=== PATIENT | male | born 1960 | race Caucasian/White ===

== ENCOUNTER 2016-07-18 12:28 | Inpatient (IN) | payer OTHER ==
[2016-07-18 13:06] VITALS: BMI 29.2
--- NOTE | 2016-07-18 15:01 | HP ---
Admission ROS [facility] Chief Complaint: I AM HERE FOR REHAB FROM ALCOHOL Allergies/Adverse Reactions: Allergies Allergy/AdvReac Type Severity Reaction Status Date / Time clindamycin Allergy Verified 07/18/16 15:06 Penicillins Allergy Verified 07/18/16 15:05 vancomycin Allergy Verified 07/18/16 15:05 History of Present Illness: THIS 56 YEARS OLD MALE WITH ALCOHOL DEPENDENCE FOR REHAB DETOX AT [facility] FROM 07/12/16 TO 07/18/16 HTN HYPERLIPIDEMIA GOUT LONGEST SOBRIETY 1 YEAR Exam Limitations: No Limitations - Ebola screening Have you traveled outside of the country in the last 21 days: No Have you been sick,other than usual withdrawal symptoms: No - Review of Systems Constitutional: No Symptoms Reported EENT: reports: No Symptoms Reported Respiratory: reports: No Symptoms reported Cardiac: reports: No Symptoms Reported GI: reports: No Symptoms Reported : reports: No Symptoms Reported Musculoskeletal: reports: No Symptoms Reported Integumentary: reports: No Symptoms Reported Neuro: reports: No Symptoms reported Endocrine: reports: No Symptoms Reported Hematology: reports: No Symptoms Reported, Other (HISTORY OF HAIRY CELL LEUKEMIA S/P CHEMOTHERAY ON REMISION) Psychiatric: reports: No Sypmtoms Reported Other Systems: Reviewed and Negative Patient History - Patient Medical History Hx Anemia: Yes (NON COMPLIANCE) Hx Asthma: No Hx Chronic Obstructive Pulmonary Disease (COPD): No Hx Cancer: No Hx Cardiac Disorders: No Hx Congestive Heart Failure: No Hx Hypertension: Yes (ON MED) Hx Hypercholesterolemia: Yes (ON MED) Hx Pacemaker: No HX Cerebrovascular Accident: No Hx Seizures: No Hx Dementia: No Hx Diabetes: No Hx Gastrointestinal Disorders: No Hx Liver Disease: No Hx Genitourinary Disorders: No Hx Sexually Transmitted Disorders: No Hx Renal Disease (ESRD): No Hx Thyroid Disease: No Hx Human Immunodeficiency Virus (HIV): No (LAST 05/30 NEGATIVE) Hx Hepatitis C: No Hx Depression: No Hx Suicide Attempt: No Hx Bipolar Disorder: No Hx Schizophrenia: No Other Medical History: NO SUICIDAL,NO HOMICIDAL,HISOTRY OF HAIRY CELL LEUKEMIA ON REMISSION S/P CH - Patient Surgical History Past Surgical History: No - PPD History Previous Implant?: Yes Documented Results: Negative w/o proof PPD to be Administered?: Yes - Smoking Cessation Smoking history: Never smoked - Substance & Tx. History Hx Alcohol Use: Yes Hx Substance Use: No Substance Use Type: Alcohol Hx Substance Use Treatment: Yes ([facility] 07/12/16 TO 07/18/16) - Substances Abused Alcohol Route: Oral Frequency: Daily Amount used: 1PINT OF RUM/2 OF 12 OZS OF BEER Age of first use: 19 Date of Last Use: 07/12/16 Family Disease History - Family Disease History Family History: Denies Admission Physical Exam [facility] - Vital Signs Vital Signs: Vital Signs - 24 hr 07/18/16 13:03 Temperature 99.1 F Pulse Rate 71 Respiratory 18 Rate Blood Pressure 152/88 - Physical General Appearance: Yes: Within Normal Limits HEENTM: Yes: Within Normal Limits Respiratory: Yes: Lungs Clear Neck: Yes: Within Normal Limits Breast: Yes: Within Normal Limits Cardiology: Yes: Within Normal Limits, Regular Rhythm, Regular Rate, S1, S2 Abdominal: Yes: Within Normal Limits, Normal Bowel Sounds, Non Tender, Flat, Soft Genitourinary: Yes: Within Normal Limits Back: Yes: Within Normal Limits Musculoskeletal: Yes: Within Normal Limits Extremities: Yes: Within Normal Limits Neurological: Yes: Within Normal Limits, 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, Fully Oriented, Alert Integumentary: Yes: Within Normal Limits Lymphatic: Yes: Within Normal Limits - Diagnostic (1) Alcohol dependence Current Visit: Yes Status: Acute (2) Hypertension Current Visit: Yes Status: Acute (3) Hyperlipidemia Current Visit: Yes Status: Acute (4) Gout Current Visit: Yes Status: Acute (5) Hairy cell leukemia Current Visit: Yes Status: Acute (6) History of chemotherapy Current Visit: Yes Status: Acute Cleared for Admission [facility] - Detox or Rehab Claeared for Rehab Admission: Yes [facility] Breath Alcohol Content Breath Alcohol Content: 0 Urine Drug Screen - Results Drug Screen Negative: No Urine Drug Screen Results: OPI-Opiates, BZO-Benzodiazepines
[2016-07-18] MEDS ORDERED: MAG HYDROX/AL HYDROX/SIMETH 30 ML UNIT-DOSE CUP PO PRN (15:29)
[2016-07-18] MEDS ORDERED: P-EPHED 60MG/TRIPROLIDI 2.5MG TABLET PO PRN (15:29)
[2016-07-18] MEDS ORDERED: diphenhydrAMINE HCL 50 MG CAPSULE PO PRN (15:29)
[2016-07-18] MEDS ORDERED: IBUPROFEN 400 MG TABLET (FP) PO PRN (15:29)
[2016-07-18] MEDS ORDERED: MENTHOL/PHENOL 1 EACH UD MM PRN (15:29)
[2016-07-18] MEDS ORDERED: MAGNESIUM HYDROX 2400MG/30ML ORAL SUSPENSION 30 ML CUP PO PRN (15:29)
[2016-07-18] MEDS ORDERED: guaiFENesin/D-METHORPHAN HB 10 ML UNIT-DOSE CUPS PO PRN (15:29)
[2016-07-18] MEDS ORDERED: LOPERAMIDE HCL 2 MG CAPSULE PO PRN (15:29)
[2016-07-18] MEDS ORDERED: MAGNESIUM CITRATE 300 ML BOTTLE PO PRN (15:29)
[2016-07-18] MEDS ORDERED: ACETAMINOPHEN 325 MG TABLET (FP) PO PRN (15:29)
[2016-07-18 17:36] LABS: MCH 31.9 pg (25.7-33.7); MCHC 33.3 g/dl (32.0-35.9); MEAN CELL VOLUME 95.8 fl (80-96); MEAN PLT VOLUME 8.3 fl (7.5-11.1); PLATELET COUNT 234 K/MM3 (134-434); RDW 13.2 % (11.9-15.9); WHITE BLOOD COUNT 4.7 K/mm3 (4.0-10.0)
[2016-07-18 17:47] LABS: ALBUMIN 4.2 g/dl (3.4-5.0); ANION GAP 8 (8-16); CO2 26 mmol/L (21-32); CREATININE 0.8 mg/dL (0.7-1.3); GLUCOSE,RANDOM 114 mg/dL (74-106); SGOT/AST 29 U/L (15-37)
[2016-07-18 18:01] LABS: ALK PHOS 92 U/L (45-117); BILIRUBIN,TOTAL 0.4 mg/dL (0.2-1.0); SGPT/ALT 59 U/L (12-78); TOT PROT 7.2 g/dl (6.4-8.2)
[2016-07-18] MEDS: THIAMINE HCL 100 MG TABLET (FP) PO SCH (21:28)
[2016-07-19] MEDS ORDERED: PATIENT'S OWN MEDICATION (NON-FORMULARY) (Vitamin B Complex [Vitamin B Complex] 1 EACH) PO SCH (10:00)
--- NOTE | 2016-07-19 10:09 | HP ---
Psychiatrist Admission - Data Date of interview: 07/19/16 Admission source: [facility]( inpt detox 07/12/16-07/18/16) Identifying data: This is the first [facility] admission for this 56 years old male, father of 3 children, unemployed on SSI, domiciled Medical History: Significant for history of Anemia, HTN, Hyperlipidemia, Gout, Hairy Cell Leukemia in remission Psychiatric History: Denies history of previous psychiatric treatment Physical/Sexual Abuse/Trauma History: Denies history of physical, sexual abuse as DV relationhip Additional Comment: Denies criminal history Vital Signs: Vital Signs - 24 hr 07/18/16 07/19/16 07/19/16 13:03 00:30 03:30 Temperature 99.1 F Pulse Rate 71 Respiratory 18 16 16 Rate Blood Pressure 152/88 07/19/16 06:00 Temperature 98.5 F Pulse Rate 64 Respiratory 18 Rate Blood Pressure 161/92 Allergies/Adverse Reactions: Allergies Allergy/AdvReac Type Severity Reaction Status Date / Time clindamycin Allergy Verified 07/18/16 15:06 Penicillins Allergy Verified 07/18/16 15:05 vancomycin Allergy Verified 07/18/16 15:05 Date of last physical exam: 07/18/16 Concur with the findings of this exam: Yes - Substance Abuse/Tx History Hx Alcohol Use: Yes Substance Use Type: Alcohol (Started drinking alcohol at age 19, consumes one pint of rum and 2x 12 oz of beer daily. Last drink on 07/12/16) Hx Substance Use Treatment: Yes (3 previous inpt detox & 3 inpt rehab( [address])) - Admission Criteria Previous failed treatment: No Poor recovery environment: Yes Comorbidities: Yes Lacks judgement: Yes Mental Status Exam - Mental Status Exam Alert and Oriented to: Time, Place, Person Cognitive Function: Fair Patient Appearance: Well Groomed Mood: Anxious Affect: Appropriate Patient Behavior: Cooperative Speech Pattern: Clear Voice Loudness: Normal Thought Process: Intact Thought Disorder: Not Present Hallucinations: Denies Suicidal Ideation: Denies Homicidal Ideation: Denies Insight/Judgement: Fair Sleep: Poorly Appetite: Fair Muscle strength/Tone: Normal Gait/Station: Normal Psychiatric Findings - Problem List ([place] 1, 2,3) (1) Alcohol dependence Current Visit: Yes Status: Acute (2) Gout Current Visit: Yes Status: Acute (3) Hairy cell leukemia Current Visit: Yes Status: Acute (4) History of chemotherapy Current Visit: Yes Status: Acute (5) Hyperlipidemia Current Visit: Yes Status: Acute (6) Hypertension Current Visit: Yes Status: Acute (7) Alcohol-induced sleep disorder Current Visit: Yes Status: Acute - Initial Treatment Plan Initial Treatment Plan: 1) Start Trazadone 100 mg po HS. 2) Monitor progress
[2016-07-19] MEDS: PRENATAL VITAMINS W/ FOLIC ACID TABLET (FP) PO SCH (10:14)
[2016-07-19] MEDS: AMLODIPINE BESYLATE 5 MG PO SCH (11:30)
[2016-07-19] MEDS: PATIENT'S OWN MEDICATION (NON-FORMULARY) (Folic Acid - [Folic Acid -] 1 MG) PO SCH (11:30)
[2016-07-19] MEDS: ALLOPURINOL PO SCH (11:30)
[2016-07-19] MEDS: ATENOLOL PO SCH (11:30)
[2016-07-19] MEDS ORDERED: ACETAMINOPHEN 325 MG TABLET (FP) ONE (12:20)
[2016-07-19] MEDS: PATIENT'S OWN MEDICATION (NON-FORMULARY) (Simvastatin [Simvastatin] 10 MG) PO SCH ×2 (16:40→21:20)
[2016-07-19] MEDS: traZODone HCL 100 MG TABLET (FP) PO SCH (21:21)
[2016-07-19] MEDS: THIAMINE HCL 100 MG TABLET (FP) PO SCH (21:21)
[2016-07-20] MEDS: ALLOPURINOL PO SCH (10:22)
[2016-07-20] MEDS: AMLODIPINE BESYLATE 5 MG PO SCH (10:22)
[2016-07-20] MEDS: PATIENT'S OWN MEDICATION (NON-FORMULARY) (Folic Acid - [Folic Acid -] 1 MG) PO SCH (10:22)
[2016-07-20] MEDS: ATENOLOL PO SCH (10:22)
[2016-07-20] MEDS: PRENATAL VITAMINS W/ FOLIC ACID TABLET (FP) PO SCH (10:23)
[2016-07-20 11:08] LABS: URINE APPEARANCE SLCLOUDY; URINE BILIRUBIN NEGATIVE (NEGATIVE); URINE BLOOD NEGATIVE (NEGATIVE); URINE COLOR LTYELLOW; URINE GLUCOSE (UA) NEGATIVE (NEGATIVE); URINE KETONE NEGATIVE (NEGATIVE); URINE NITRITE NEGATIVE (NEGATIVE); URINE PROTEIN NEGATIVE (NEGATIVE); URINE UROBILINOGEN NEGATIVE E.U./dl (0.2-1.0)
--- NOTE | 2016-07-20 11:22 | EKG ---
Test Reason : Blood Pressure : / mmHG Vent. Rate : 085 BPM Atrial Rate : 085 BPM P-R Int : 180 ms QRS Dur : 102 ms QT Int : 370 ms P-R-T Axes : 053 028 031 degrees QTc Int : 440 ms NORMAL SINUS RHYTHM CANNOT RULE OUT ANTERIOR INFARCT , AGE UNDETERMINED NONSPECIFIC ST ABNORMALITY NO PREVIOUS ECGS AVAILABLE Confirmed by ALISTAIR LAYNE MD ([id number]) on 07/20/2016 11:22:06 AM Referred By: Confirmed By:ALISTAIR LAYNE MD
[2016-07-20 11:31] LABS: URINE LEUK ESTERASE TRACE (NEGATIVE)
[2016-07-20 11:50] LABS: URINE BACTERIA MANY /hpf (NONE SEEN); URINE MUCUS RARE; URINE WBC 2 /hpf (3-5); YEAST RARE
[2016-07-20 12:20] LABS: URINE RBC 1 /hpf (0-3)
[2016-07-20] MEDS: traZODone HCL 100 MG TABLET (FP) PO SCH (21:40)
[2016-07-20] MEDS: PATIENT'S OWN MEDICATION (NON-FORMULARY) (Simvastatin [Simvastatin] 10 MG) PO SCH (21:40)
[2016-07-20] MEDS: THIAMINE HCL 100 MG TABLET (FP) PO SCH (21:40)
[2016-07-21] MEDS: ATENOLOL PO SCH (10:28)
[2016-07-21] MEDS: ALLOPURINOL PO SCH (10:28)
[2016-07-21] MEDS: PATIENT'S OWN MEDICATION (NON-FORMULARY) (Folic Acid - [Folic Acid -] 1 MG) PO SCH (10:28)
[2016-07-21] MEDS: PRENATAL VITAMINS W/ FOLIC ACID TABLET (FP) PO SCH (10:28)
[2016-07-21] MEDS: AMLODIPINE BESYLATE 5 MG PO SCH (10:28)
[2016-07-21] MEDS: traZODone HCL 100 MG TABLET (FP) PO SCH (21:17)
[2016-07-21] MEDS: THIAMINE HCL 100 MG TABLET (FP) PO SCH (21:18)
[2016-07-21] MEDS: PATIENT'S OWN MEDICATION (NON-FORMULARY) (Simvastatin [Simvastatin] 10 MG) PO SCH (21:18)
[2016-07-22] MEDS: ALLOPURINOL PO SCH (10:15)
[2016-07-22] MEDS: PATIENT'S OWN MEDICATION (NON-FORMULARY) (Folic Acid - [Folic Acid -] 1 MG) PO SCH (10:15)
[2016-07-22] MEDS: PRENATAL VITAMINS W/ FOLIC ACID TABLET (FP) PO SCH (10:15)
[2016-07-22] MEDS: ATENOLOL PO SCH (10:15)
[2016-07-22] MEDS: AMLODIPINE BESYLATE 5 MG PO SCH (10:15)
[2016-07-22] MEDS: THIAMINE HCL 100 MG TABLET (FP) PO SCH (21:45)
[2016-07-22] MEDS: traZODone HCL 100 MG TABLET (FP) PO SCH (21:45)
[2016-07-22] MEDS: PATIENT'S OWN MEDICATION (NON-FORMULARY) (Simvastatin [Simvastatin] 10 MG) PO SCH (21:45)
[2016-07-23] MEDS: PATIENT'S OWN MEDICATION (NON-FORMULARY) (Folic Acid - [Folic Acid -] 1 MG) PO SCH (10:08)
[2016-07-23] MEDS: ALLOPURINOL PO SCH (10:08)
[2016-07-23] MEDS: AMLODIPINE BESYLATE 5 MG PO SCH (10:08)
[2016-07-23] MEDS: ATENOLOL PO SCH (10:08)
[2016-07-23] MEDS: PRENATAL VITAMINS W/ FOLIC ACID TABLET (FP) PO SCH (10:08)
[2016-07-23] MEDS: THIAMINE HCL 100 MG TABLET (FP) PO SCH (21:43)
[2016-07-23] MEDS: PATIENT'S OWN MEDICATION (NON-FORMULARY) (Simvastatin [Simvastatin] 10 MG) PO SCH (21:43)
[2016-07-23] MEDS: traZODone HCL 100 MG TABLET (FP) PO SCH (22:54)
[2016-07-24] MEDS: PRENATAL VITAMINS W/ FOLIC ACID TABLET (FP) PO SCH (10:03)
[2016-07-24] MEDS: AMLODIPINE BESYLATE 5 MG PO SCH (10:03)
[2016-07-24] MEDS: PATIENT'S OWN MEDICATION (NON-FORMULARY) (Folic Acid - [Folic Acid -] 1 MG) PO SCH (10:04)
[2016-07-24] MEDS: ATENOLOL PO SCH (10:04)
[2016-07-24] MEDS: ALLOPURINOL PO SCH (10:04)
[2016-07-24] MEDS: THIAMINE HCL 100 MG TABLET (FP) PO SCH (21:41)
[2016-07-24] MEDS: PATIENT'S OWN MEDICATION (NON-FORMULARY) (Simvastatin [Simvastatin] 10 MG) PO SCH (21:41)
[2016-07-24] MEDS: traZODone HCL 100 MG TABLET (FP) PO SCH (21:41)
[2016-07-25] MEDS: PATIENT'S OWN MEDICATION (NON-FORMULARY) (Folic Acid - [Folic Acid -] 1 MG) PO SCH (10:27)
[2016-07-25] MEDS: AMLODIPINE BESYLATE 5 MG PO SCH (10:27)
[2016-07-25] MEDS: ALLOPURINOL PO SCH (10:27)
[2016-07-25] MEDS: ATENOLOL PO SCH (10:27)
[2016-07-25] MEDS: PRENATAL VITAMINS W/ FOLIC ACID TABLET (FP) PO SCH (10:28)
[2016-07-25] MEDS: PATIENT'S OWN MEDICATION (NON-FORMULARY) (Simvastatin [Simvastatin] 10 MG) PO SCH (21:36)
[2016-07-25] MEDS: THIAMINE HCL 100 MG TABLET (FP) PO SCH (21:36)
[2016-07-25] MEDS: traZODone HCL 100 MG TABLET (FP) PO SCH (21:36)
[2016-07-26] MEDS: PRENATAL VITAMINS W/ FOLIC ACID TABLET (FP) PO SCH (10:15)
[2016-07-26] MEDS: ATENOLOL PO SCH (10:15)
[2016-07-26] MEDS: PATIENT'S OWN MEDICATION (NON-FORMULARY) (Folic Acid - [Folic Acid -] 1 MG) PO SCH (10:15)
[2016-07-26] MEDS: AMLODIPINE BESYLATE 5 MG PO SCH (10:15)
[2016-07-26] MEDS: ALLOPURINOL PO SCH (10:15)
[2016-07-26] MEDS: PATIENT'S OWN MEDICATION (NON-FORMULARY) (Simvastatin [Simvastatin] 10 MG) PO SCH (21:34)
[2016-07-26] MEDS: traZODone HCL 100 MG TABLET (FP) PO SCH (21:34)
[2016-07-26] MEDS: THIAMINE HCL 100 MG TABLET (FP) PO SCH (21:34)
[2016-07-27] MEDS: ALLOPURINOL PO SCH (10:27)
[2016-07-27] MEDS: ATENOLOL PO SCH (10:27)
[2016-07-27] MEDS: AMLODIPINE BESYLATE 5 MG PO SCH (10:27)
[2016-07-27] MEDS: PRENATAL VITAMINS W/ FOLIC ACID TABLET (FP) PO SCH (10:27)
[2016-07-27] MEDS: PATIENT'S OWN MEDICATION (NON-FORMULARY) (Folic Acid - [Folic Acid -] 1 MG) PO SCH (10:28)
[2016-07-27] MEDS: traZODone HCL 100 MG TABLET (FP) PO SCH (21:41)
[2016-07-27] MEDS: THIAMINE HCL 100 MG TABLET (FP) PO SCH (21:41)
[2016-07-27] MEDS: PATIENT'S OWN MEDICATION (NON-FORMULARY) (Simvastatin [Simvastatin] 10 MG) PO SCH (21:42)
[2016-07-28] MEDS: PATIENT'S OWN MEDICATION (NON-FORMULARY) (Folic Acid - [Folic Acid -] 1 MG) PO SCH (10:55)
[2016-07-28] MEDS: ALLOPURINOL PO SCH (10:55)
[2016-07-28] MEDS: ATENOLOL PO SCH (10:55)
[2016-07-28] MEDS: AMLODIPINE BESYLATE 5 MG PO SCH (10:55)
[2016-07-28] MEDS: PRENATAL VITAMINS W/ FOLIC ACID TABLET (FP) PO SCH (11:17)
[2016-07-28] MEDS: traZODone HCL 100 MG TABLET (FP) PO SCH (21:34)
[2016-07-28] MEDS: THIAMINE HCL 100 MG TABLET (FP) PO SCH (21:34)
[2016-07-28] MEDS: PATIENT'S OWN MEDICATION (NON-FORMULARY) (Simvastatin [Simvastatin] 10 MG) PO SCH (21:34)
[2016-07-29] MEDS: ATENOLOL PO SCH (10:26)
[2016-07-29] MEDS: PATIENT'S OWN MEDICATION (NON-FORMULARY) (Folic Acid - [Folic Acid -] 1 MG) PO SCH (10:27)
[2016-07-29] MEDS: PRENATAL VITAMINS W/ FOLIC ACID TABLET (FP) PO SCH (10:28)
[2016-07-29] MEDS: AMLODIPINE BESYLATE 5 MG PO SCH (10:28)
[2016-07-29] MEDS: ALLOPURINOL PO SCH (10:28)
[2016-07-29] MEDS: PATIENT'S OWN MEDICATION (NON-FORMULARY) (Simvastatin [Simvastatin] 10 MG) PO SCH (21:34)
[2016-07-29] MEDS: THIAMINE HCL 100 MG TABLET (FP) PO SCH (21:34)
[2016-07-29] MEDS: traZODone HCL 100 MG TABLET (FP) PO SCH (21:35)
[2016-07-30] MEDS: ALLOPURINOL PO SCH (10:23)
[2016-07-30] MEDS: ATENOLOL PO SCH (10:23)
[2016-07-30] MEDS: PRENATAL VITAMINS W/ FOLIC ACID TABLET (FP) PO SCH (10:24)
[2016-07-30] MEDS: PATIENT'S OWN MEDICATION (NON-FORMULARY) (Folic Acid - [Folic Acid -] 1 MG) PO SCH (10:24)
[2016-07-30] MEDS: AMLODIPINE BESYLATE 5 MG PO SCH (10:24)
[2016-07-30] MEDS: THIAMINE HCL 100 MG TABLET (FP) PO SCH (21:32)
[2016-07-30] MEDS: traZODone HCL 100 MG TABLET (FP) PO SCH (21:32)
[2016-07-30] MEDS: PATIENT'S OWN MEDICATION (NON-FORMULARY) (Simvastatin [Simvastatin] 10 MG) PO SCH (21:32)
[2016-07-31] MEDS: ALLOPURINOL PO SCH (10:32)
[2016-07-31] MEDS: AMLODIPINE BESYLATE 5 MG PO SCH (10:32)
[2016-07-31] MEDS: PATIENT'S OWN MEDICATION (NON-FORMULARY) (Folic Acid - [Folic Acid -] 1 MG) PO SCH (10:32)
[2016-07-31] MEDS: ATENOLOL PO SCH (10:32)
[2016-07-31] MEDS: PRENATAL VITAMINS W/ FOLIC ACID TABLET (FP) PO SCH (10:33)
[2016-07-31] MEDS: traZODone HCL 100 MG TABLET (FP) PO SCH (21:25)
[2016-07-31] MEDS: PATIENT'S OWN MEDICATION (NON-FORMULARY) (Simvastatin [Simvastatin] 10 MG) PO SCH (21:25)
[2016-07-31] MEDS: THIAMINE HCL 100 MG TABLET (FP) PO SCH (21:25)
[2016-08-01] MEDS: ALLOPURINOL PO SCH (10:28)
[2016-08-01] MEDS: PATIENT'S OWN MEDICATION (NON-FORMULARY) (Folic Acid - [Folic Acid -] 1 MG) PO SCH (10:28)
[2016-08-01] MEDS: ATENOLOL PO SCH (10:28)
[2016-08-01] MEDS: AMLODIPINE BESYLATE 5 MG PO SCH (10:28)
[2016-08-01] MEDS: PRENATAL VITAMINS W/ FOLIC ACID TABLET (FP) PO SCH (10:28)
[2016-08-01] MEDS: THIAMINE HCL 100 MG TABLET (FP) PO SCH (21:30)
[2016-08-01] MEDS: traZODone HCL 100 MG TABLET (FP) PO SCH (21:30)
[2016-08-01] MEDS: PATIENT'S OWN MEDICATION (NON-FORMULARY) (Simvastatin [Simvastatin] 10 MG) PO SCH (21:30)
[2016-08-02] MEDS: PRENATAL VITAMINS W/ FOLIC ACID TABLET (FP) PO SCH (10:17)
[2016-08-02] MEDS: ATENOLOL PO SCH (10:17)
[2016-08-02] MEDS: PATIENT'S OWN MEDICATION (NON-FORMULARY) (Folic Acid - [Folic Acid -] 1 MG) PO SCH (10:17)
[2016-08-02] MEDS: ALLOPURINOL PO SCH (10:17)
[2016-08-02] MEDS: AMLODIPINE BESYLATE 5 MG PO SCH (10:17)
[2016-08-02] MEDS: PATIENT'S OWN MEDICATION (NON-FORMULARY) (Simvastatin [Simvastatin] 10 MG) PO SCH (21:37)
[2016-08-02] MEDS: traZODone HCL 100 MG TABLET (FP) PO SCH (21:38)
[2016-08-02] MEDS: THIAMINE HCL 100 MG TABLET (FP) PO SCH (21:38)
[2016-08-03] MEDS: ATENOLOL PO SCH (10:16)
[2016-08-03] MEDS: AMLODIPINE BESYLATE 5 MG PO SCH (10:16)
[2016-08-03] MEDS: ALLOPURINOL PO SCH (10:17)
[2016-08-03] MEDS: PRENATAL VITAMINS W/ FOLIC ACID TABLET (FP) PO SCH (10:17)
[2016-08-03] MEDS: PATIENT'S OWN MEDICATION (NON-FORMULARY) (Folic Acid - [Folic Acid -] 1 MG) PO SCH (10:17)
[2016-08-03] MEDS: traZODone HCL 100 MG TABLET (FP) PO SCH (21:52)
[2016-08-03] MEDS: PATIENT'S OWN MEDICATION (NON-FORMULARY) (Simvastatin [Simvastatin] 10 MG) PO SCH (21:52)
[2016-08-03] MEDS: THIAMINE HCL 100 MG TABLET (FP) PO SCH (21:52)
[2016-08-04] MEDS: PATIENT'S OWN MEDICATION (NON-FORMULARY) (Folic Acid - [Folic Acid -] 1 MG) PO SCH (10:20)
[2016-08-04] MEDS: ATENOLOL PO SCH (10:20)
[2016-08-04] MEDS: AMLODIPINE BESYLATE 5 MG PO SCH (10:20)
[2016-08-04] MEDS: ALLOPURINOL PO SCH (10:20)
[2016-08-04] MEDS: PRENATAL VITAMINS W/ FOLIC ACID TABLET (FP) PO SCH (10:20)
[2016-08-04] MEDS: traZODone HCL 100 MG TABLET (FP) PO SCH (21:42)
[2016-08-04] MEDS: THIAMINE HCL 100 MG TABLET (FP) PO SCH (21:42)
[2016-08-04] MEDS: PATIENT'S OWN MEDICATION (NON-FORMULARY) (Simvastatin [Simvastatin] 10 MG) PO SCH (21:43)
[2016-08-05] MEDS: ATENOLOL PO SCH (10:13)
[2016-08-05] MEDS: ALLOPURINOL PO SCH (10:13)
[2016-08-05] MEDS: AMLODIPINE BESYLATE 5 MG PO SCH (10:13)
[2016-08-05] MEDS: PATIENT'S OWN MEDICATION (NON-FORMULARY) (Folic Acid - [Folic Acid -] 1 MG) PO SCH (10:13)
[2016-08-05] MEDS: PRENATAL VITAMINS W/ FOLIC ACID TABLET (FP) PO SCH (10:13)
[2016-08-05] MEDS: THIAMINE HCL 100 MG TABLET (FP) PO SCH (21:58)
[2016-08-05] MEDS: traZODone HCL 100 MG TABLET (FP) PO SCH (21:58)
[2016-08-05] MEDS: PATIENT'S OWN MEDICATION (NON-FORMULARY) (Simvastatin [Simvastatin] 10 MG) PO SCH (21:59)
[2016-08-06] MEDS: PRENATAL VITAMINS W/ FOLIC ACID TABLET (FP) PO SCH (09:47)
[2016-08-06] MEDS: ALLOPURINOL PO SCH (09:47)
[2016-08-06] MEDS: AMLODIPINE BESYLATE 5 MG PO SCH (09:48)
[2016-08-06] MEDS: ATENOLOL PO SCH (09:48)
[2016-08-06] MEDS: PATIENT'S OWN MEDICATION (NON-FORMULARY) (Folic Acid - [Folic Acid -] 1 MG) PO SCH (09:49)
[2016-08-06] MEDS: PATIENT'S OWN MEDICATION (NON-FORMULARY) (Simvastatin [Simvastatin] 10 MG) PO SCH (22:00)
[2016-08-06] MEDS: traZODone HCL 100 MG TABLET (FP) PO SCH (22:20)
[2016-08-06] MEDS: THIAMINE HCL 100 MG TABLET (FP) PO SCH (22:20)
[2016-08-07] MEDS: AMLODIPINE BESYLATE 5 MG PO SCH (10:14)
[2016-08-07] MEDS: PRENATAL VITAMINS W/ FOLIC ACID TABLET (FP) PO SCH (10:14)
[2016-08-07] MEDS: ALLOPURINOL PO SCH (10:14)
[2016-08-07] MEDS: PATIENT'S OWN MEDICATION (NON-FORMULARY) (Folic Acid - [Folic Acid -] 1 MG) PO SCH (10:14)
[2016-08-07] MEDS: ATENOLOL PO SCH (10:14)
[2016-08-07] MEDS: THIAMINE HCL 100 MG TABLET (FP) PO SCH (21:42)
[2016-08-07] MEDS: PATIENT'S OWN MEDICATION (NON-FORMULARY) (Simvastatin [Simvastatin] 10 MG) PO SCH (21:42)
[2016-08-07] MEDS: traZODone HCL 100 MG TABLET (FP) PO SCH (21:43)
[2016-08-08] MEDS: PRENATAL VITAMINS W/ FOLIC ACID TABLET (FP) PO SCH (10:12)
[2016-08-08] MEDS: ATENOLOL PO SCH (10:13)
[2016-08-08] MEDS: AMLODIPINE BESYLATE 5 MG PO SCH (10:13)
[2016-08-08] MEDS: ALLOPURINOL PO SCH (10:13)
[2016-08-08] MEDS: PATIENT'S OWN MEDICATION (NON-FORMULARY) (Folic Acid - [Folic Acid -] 1 MG) PO SCH (10:14)
[2016-08-08] MEDS: THIAMINE HCL 100 MG TABLET (FP) PO SCH (21:46)
[2016-08-08] MEDS: traZODone HCL 100 MG TABLET (FP) PO SCH (21:47)
[2016-08-08] MEDS: PATIENT'S OWN MEDICATION (NON-FORMULARY) (Simvastatin [Simvastatin] 10 MG) PO SCH (21:47)
[2016-08-09] MEDS: ALLOPURINOL PO SCH (10:07)
[2016-08-09] MEDS: ATENOLOL PO SCH (10:07)
[2016-08-09] MEDS: AMLODIPINE BESYLATE 5 MG PO SCH (10:07)
[2016-08-09] MEDS: PATIENT'S OWN MEDICATION (NON-FORMULARY) (Folic Acid - [Folic Acid -] 1 MG) PO SCH (10:07)
[2016-08-09] MEDS: PRENATAL VITAMINS W/ FOLIC ACID TABLET (FP) PO SCH (10:07)
[2016-08-09] MEDS: traZODone HCL 100 MG TABLET (FP) PO SCH (21:46)
[2016-08-09] MEDS: PATIENT'S OWN MEDICATION (NON-FORMULARY) (Simvastatin [Simvastatin] 10 MG) PO SCH (21:46)
[2016-08-09] MEDS: THIAMINE HCL 100 MG TABLET (FP) PO SCH (21:46)
[2016-08-10] MEDS: AMLODIPINE BESYLATE 5 MG PO SCH (08:37)
[2016-08-10] MEDS: ATENOLOL PO SCH (08:38)
[2016-08-10] MEDS: ALLOPURINOL PO SCH (10:17)
[2016-08-10] MEDS: PRENATAL VITAMINS W/ FOLIC ACID TABLET (FP) PO SCH (10:18)
[2016-08-10] MEDS: PATIENT'S OWN MEDICATION (NON-FORMULARY) (Folic Acid - [Folic Acid -] 1 MG) PO SCH (10:18)
[2016-08-10] MEDS: THIAMINE HCL 100 MG TABLET (FP) PO SCH (21:32)
[2016-08-10] MEDS: traZODone HCL 100 MG TABLET (FP) PO SCH (21:32)
[2016-08-10] MEDS: PATIENT'S OWN MEDICATION (NON-FORMULARY) (Simvastatin [Simvastatin] 10 MG) PO SCH (21:43)
[2016-08-11] MEDS: AMLODIPINE BESYLATE 5 MG PO SCH (07:51)
[2016-08-11] MEDS: ATENOLOL PO SCH (07:51)
[2016-08-11] MEDS: PRENATAL VITAMINS W/ FOLIC ACID TABLET (FP) PO SCH (10:37)
[2016-08-11] MEDS: PATIENT'S OWN MEDICATION (NON-FORMULARY) (Folic Acid - [Folic Acid -] 1 MG) PO SCH (10:37)
[2016-08-11] MEDS: ALLOPURINOL PO SCH (10:37)
[2016-08-11] MEDS: traZODone HCL 100 MG TABLET (FP) PO SCH (21:38)
[2016-08-11] MEDS: PATIENT'S OWN MEDICATION (NON-FORMULARY) (Simvastatin [Simvastatin] 10 MG) PO SCH (21:38)
[2016-08-11] MEDS: THIAMINE HCL 100 MG TABLET (FP) PO SCH (21:39)
[2016-08-12] MEDS: ATENOLOL PO SCH (07:39)
[2016-08-12] MEDS: AMLODIPINE BESYLATE 5 MG PO SCH (07:39)
[2016-08-12] MEDS: PATIENT'S OWN MEDICATION (NON-FORMULARY) (Folic Acid - [Folic Acid -] 1 MG) PO SCH (09:54)
[2016-08-12] MEDS: ALLOPURINOL PO SCH (09:56)
[2016-08-12] MEDS: PRENATAL VITAMINS W/ FOLIC ACID TABLET (FP) PO SCH (09:56)
[2016-08-12] MEDS: PATIENT'S OWN MEDICATION (NON-FORMULARY) (Simvastatin [Simvastatin] 10 MG) PO SCH (21:42)
[2016-08-12] MEDS: THIAMINE HCL 100 MG TABLET (FP) PO SCH (23:09)
[2016-08-12] MEDS: traZODone HCL 100 MG TABLET (FP) PO SCH (23:09)
[2016-08-13] MEDS: AMLODIPINE BESYLATE 5 MG PO SCH (07:31)
[2016-08-13] MEDS: ATENOLOL PO SCH (07:31)
[2016-08-13] MEDS: ALLOPURINOL PO SCH (10:03)
[2016-08-13] MEDS: PRENATAL VITAMINS W/ FOLIC ACID TABLET (FP) PO SCH (10:04)
[2016-08-13] MEDS: PATIENT'S OWN MEDICATION (NON-FORMULARY) (Folic Acid - [Folic Acid -] 1 MG) PO SCH (10:04)
[2016-08-13] MEDS ORDERED: PATIENT'S OWN MEDICATION (NON-FORMULARY) (Amlodipine Besylate [Amlodipine Besylate] 10 MG) PO SCH (13:19)
[2016-08-13] MEDS: PATIENT'S OWN MEDICATION (NON-FORMULARY) (Simvastatin [Simvastatin] 10 MG) PO SCH (21:53)
[2016-08-13] MEDS: THIAMINE HCL 100 MG TABLET (FP) PO SCH (21:53)
[2016-08-13] MEDS: traZODone HCL 100 MG TABLET (FP) PO SCH (21:54)
[2016-08-14] MEDS: amLODIPine BESYLATE 10 MG TABLET (FP) PO SCH (06:00)
[2016-08-14] MEDS: ALLOPURINOL PO SCH (06:00)
--- NOTE | 2016-08-14 07:03 | PN ---
Psychiatric Progress Note Vital Signs: Vital Signs Period Temp Pulse Resp BP Sys/Kramer Pulse Ox Last 24 Hr 98.5 F 77-87 16-20 138-163/79-80 Date of Session: 08/14/16 Chief Complaint:: Psychiatrist Discharge Note HPI: Patient addressing Alcohol Dependence comorbid with Alcohol-Induced Sleep Disorder ROS: Gout, HTN, Hyperlipidemia were medically managed Current Medications: Active Medications Generic Name Dose Route Start Last Admin Trade Name Freq PRN Reason Stop Dose Admin Acetaminophen 650 mg 07/18/16 15:29 Tylenol - PO Q4H PRN PAIN Al Hydroxide/Mg Hydroxide 30 ml 07/18/16 15:29 Mylanta Oral Suspension - PO Q6H PRN DYSPEPSIA Amlodipine Besylate 10 mg 08/14/16 06:00 08/14/16 06:00 Norvasc - PO 10 mg DAILY@0600 [facility] Administration Atenolol 25 mg 08/14/16 10:00 Tenormin - PO DAILY BOLIVAR Diphenhydramine HCl 50 mg 07/18/16 15:29 07/19/16 01:47 Benadryl - PO 50 mg HSMR1 PRN Administration INSOMNIA Eucalyptus/Menthol/Phenol/Sorbitol 1 each 07/18/16 15:29 Cepastat Lozenge - MM Q4H PRN SORE THROAT Guaifenesin 10 ml 07/18/16 15:29 Robitussin Dm - PO Q6H PRN COUGH Ibuprofen 400 mg 07/18/16 15:29 Motrin - PO Q6H PRN SEVERE PAIN Loperamide HCl 4 mg 07/18/16 15:29 Imodium - PO Q6H PRN DIARRHEA Magnesium Citrate 300 ml 07/18/16 15:29 Citroma - PO Q48H PRN CONSTIPATION Magnesium Hydroxide 30 ml 07/18/16 15:29 Milk Of Magnesia - PO DAILY PRN CONSTIPATION Non-Formulary Medication 1 mg 07/19/16 10:00 08/13/16 10:04 Folic Acid - [Folic Acid -] PO 1 mg DAILY BOLIVAR Administration Non-Formulary Medication 10 mg 07/18/16 22:00 08/13/16 21:53 Simvastatin [Simvastatin] PO 10 mg HS BOLIVAR Administration Non-Formulary Medication 100 mg 08/14/16 06:00 08/14/16 06:00 Allopurinol [Zyloprim -] PO 100 mg DAILY@0600 BOLIVAR Administration Multivit/Folic Acid/Iron 1 tab 07/19/16 10:00 08/13/16 10:04 Vitamins (Sjr) - PO 1 tab DAILY BOLIVAR Administration Pseudoephedrine/Triprolidine 1 combo 07/18/16 15:29 Actifed - PO TID PRN NASAL CONGESTION Thiamine HCl 100 mg 07/18/16 22:00 08/13/16 21:53 Vitamin B1 - PO 100 mg HS BOLIVAR Administration Trazodone HCl 100 mg 07/19/16 22:00 08/13/16 21:54 Desyrel - PO Not Given HS BOLIVAR Current Side Effect: No Lab tests ordered: Yes Lab tests reviewed: Yes Provider note:: Patient will complete this program on 08/15/16. He has met his treatment goals and will continue to address his issues in outpatient [facility] at [facility].Told medical writer that from his participation in this program, he has learned to identify his triggers. He responded well to trazadone 100 mg po HS. Script for that medication will be electronically transmitted to [facility] at [address] [place] [address]. He is stable for discharge on 08/15/16 Total face to face time:: 35 Mental Status Exam - Mental Status Exam Alert and Oriented to: Time, Place, Person Cognitive Function: Fair Patient Appearance: Well Groomed Mood: Hopeful, Euthymic Affect: Appropriate Patient Behavior: Cooperative Speech Pattern: Clear Voice Loudness: Normal Thought Process: Intact Thought Disorder: Not Present Hallucinations: Denies Suicidal Ideation: Denies Homicidal Ideation: Denies Insight/Judgement: Fair Sleep: Fair Appetite: Good Muscle strength/Tone: Normal Gait/Station: Normal Psychiatric Treatment Plan - Problem List (1) Alcohol dependence Current Visit: Yes (2) Gout Current Visit: Yes (3) Hairy cell leukemia Current Visit: Yes (4) History of chemotherapy Current Visit: Yes (5) Hyperlipidemia Current Visit: Yes (6) Hypertension Current Visit: Yes (7) Alcohol-induced sleep disorder Current Visit: Yes Initial treatment plan: Patient will be discharged tomorrow and referred to [facility] for [facility]
[2016-08-14] MEDS ORDERED: ATENOLOL 25 MG TABLET (FP) PO SCH (10:00)
[2016-08-14] MEDS: PATIENT'S OWN MEDICATION (NON-FORMULARY) (Folic Acid - [Folic Acid -] 1 MG) PO SCH (10:18)
[2016-08-14] MEDS: PRENATAL VITAMINS W/ FOLIC ACID TABLET (FP) PO SCH (10:19)
[2016-08-14] MEDS: PATIENT'S OWN MEDICATION (NON-FORMULARY) (Simvastatin [Simvastatin] 10 MG) PO SCH (22:01)
[2016-08-14] MEDS: THIAMINE HCL 100 MG TABLET (FP) PO SCH (22:53)
[2016-08-14] MEDS: traZODone HCL 100 MG TABLET (FP) PO SCH (22:53)
[2016-08-15] MEDS: amLODIPine BESYLATE 10 MG TABLET (FP) PO SCH (06:07)
[2016-08-15] MEDS: ALLOPURINOL PO SCH (06:07)
[2016-08-15 08:35] VITALS: BP 132/88; PULSE 99; TEMP 98.6
== END 2016-08-15 08:30 | disposition home or self-care (01) | DRG 58 ==
LOC: YASAS 12:28 → Y3W 16:10
PROVIDERS: ADMIT Psychiatry & Neurology Psychiatry; ATTEND Psychiatry & Neurology Psychiatry
PROC: HZ42ZZZ Group Counseling for Substance Abuse Treatment, Cognitive-Behavioral (ICD-10-PCS; principal; 2016-08-15)
DX: F10.282 Alcohol dependence with alcohol-induced sleep disorder (principal); I10 Essential (primary) hypertension; E78.5 Hyperlipidemia, unspecified; E78.00 Pure hypercholesterolemia, unspecified; M10.9 Gout, unspecified; C91.40 Hairy cell leukemia not having achieved remission
CPT/HCPCS: 36415; 80053; 81003; 81015; 85027; 86593; 93005; 93010

== ENCOUNTER 2018-02-19 12:06 | Inpatient (IN) | payer OTHER ==
[2018-02-19 18:58] VITALS: BMI 28.3
--- NOTE | 2018-02-19 21:01 | HP ---
CIWA Score - CIWA Score Nausea/Vomitin-Mild Nausea/No Vomiting Muscle Tremors: 4-Moderate,w/Arms Extend Anxiety: 4-Mod. Anxious/Guarded Agitation: 3 Paroxysmal Sweats: 1-Minimal Palms Moist Orientation: 0-Oriented Tacttile Disturbances: 0-None Auditory Disturbances: 0-None Visual Disturbances: 0-None Headache: 2-Mild CIWA-Ar Total Score: 15 Admission [facility] - HPI Chief Complaint: Alcohol withdrawal symptoms Allergies/Adverse Reactions: Allergies Allergy/AdvReac Type Severity Reaction Status Date / Time clindamycin Allergy Verified 02/19/18 18:58 Penicillins Allergy Verified 02/19/18 18:58 vancomycin Allergy Verified 02/19/18 18:58 History of Present Illness: 57 years old male with a long history of alcohol dependence is seeking admission to detox. Patient has been in previous detox and reports insignificant period of sobriety. He has medical history of Hypertension, Hyperlipidemia, Herpes Zoster, Hairy cell Leukemia and Gout. Patient denies suicidal ideation and suicide attempt at this time Exam Limitations: No Limitations - Ebola screening Have you traveled outside of the country in the last 21 days: No Have you had contact with anyone from an Ebola affected area: No Have you been sick,other than usual withdrawal symptoms: No Do you have a fever: No - Review of Systems Constitutional: Chills, Malaise, Night Sweats EENT: reports: No Symptoms Reported Respiratory: reports: No Symptoms reported Cardiac: reports: No Symptoms Reported GI: reports: Nausea, Poor Appetite, Poor Fluid Intake, Abdominal cramping : reports: No Symptoms Reported Musculoskeletal: reports: No Symptoms Reported Integumentary: reports: No Symptoms Reported Neuro: reports: Tremors Hematology: reports: No Symptoms Reported Psychiatric: reports: Judgement Intact, Mood/Affect Appropiate, Orientated x3 Other Systems: Reviewed and Negative Patient History - Patient Medical History Hx Anemia: Yes (Not on medication) Hx Asthma: No Hx Chronic Obstructive Pulmonary Disease (COPD): No Hx Cancer: No Hx Cardiac Disorders: No Hx Congestive Heart Failure: No Hx Hypertension: Yes (Amlodipine) Hx Hypercholesterolemia: Yes (Not on medication) Hx Pacemaker: No HX Cerebrovascular Accident: No Hx Seizures: No Hx Dementia: No Hx Diabetes: No Hx Gastrointestinal Disorders: No Hx Liver Disease: No Hx Genitourinary Disorders: No Hx Sexually Transmitted Disorders: No Hx Renal Disease (ESRD): No Hx Thyroid Disease: No Hx Human Immunodeficiency Virus (HIV): No ( NEGATIVE 2018) Hx Hepatitis C: No Hx Depression: No Hx Suicide Attempt: No Hx Bipolar Disorder: No Hx Schizophrenia: No - Patient Surgical History Past Surgical History: No Hx Neurologic Surgery: No Hx Cataract Extraction: No Hx Cardiac Surgery: No Hx Lung Surgery: No Hx Abdominal Surgery: No Hx Appendectomy: No Hx Cholecystectomy: No Hx Genitourinary Surgery: No Hx Section: No Hx Orthopedic Surgery: No - PPD History Previous Implant?: No Documented Results: Negative w/o proof Implanted On Prior [facility] Admission?: No PPD to be Administered?: Yes - Reproductive History Patient is a Female of Child Bearing Age (11 -55 yrs old): No (MALE) - Smoking Cessation Smoking history: Never smoked Have you smoked in the past 12 months: No Hx Chewing Tobacco Use: No Initiated information on smoking cessation: No - Substance & Tx. History Hx Alcohol Use: Yes Hx Substance Use: No Substance Use Type: Alcohol Hx Substance Use Treatment: Yes ([facility]) - Substances Abused Alcohol Route: Oral Frequency: Daily Amount used: 1 PINT RUM 1 - 2/6 PACK BEER- Age of first use: 19 Date of Last Use: 02/19/18 Family Disease History - Family Disease History Family History: Denies Admission Physical Exam [facility] - Vital Signs Vital Signs: Vital Signs - 24 hr 02/19/18 18:35 Temperature 98.6 F Pulse Rate 100 H Respiratory 18 Rate Blood Pressure 164/94 - Physical General Appearance: Yes: Moderate Distress HEENTM: Yes: EOMI, Normal ENT Inspection, Normocephalic, Normal Voice, [place] Respiratory: Yes: Lungs Clear, Normal Breath Sounds, No Respiratory Distress Neck: Yes: Supple Breast: Yes: Breast Exam Deferred Cardiology: Yes: Regular Rhythm, Regular Rate, Tachycardia Abdominal: Yes: Normal Bowel Sounds, Soft Genitourinary: Yes: Within Normal Limits Back: Yes: Normal Inspection Musculoskeletal: Yes: Gait Steady Extremities: Yes: Tremors Neurological: Yes: Normal Response Integumentary: Yes: Warm Lymphatic: Yes: Within Normal Limits - Diagnostic (1) Alcohol dependence with uncomplicated withdrawal Current Visit: Yes Status: Chronic (2) Hairy cell leukemia Current Visit: Yes Status: Chronic (3) Herpes zoster Current Visit: Yes Status: Chronic Qualifiers: Herpes zoster complications: without complications Qualified Code(s): B02.9 - Zoster without complications (4) Hyperlipidemia Current Visit: Yes Status: Chronic (5) Hypertension Current Visit: Yes Status: Chronic Cleared for Admission [facility] - Detox or Rehab [facility] Level of Care: Medically Managed Detox Regimen/Protocol: Librium [facility] Breath Alcohol Content Breath Alcohol Content: 0.134 Urine Drug Screen - Results Drug Screen Negative: Yes
[2018-02-19] MEDS ORDERED: P-EPHED 60MG/TRIPROLIDI 2.5MG TABLET PO PRN (21:11)
[2018-02-19] MEDS ORDERED: ACETAMINOPHEN 325 MG TABLET (FP) PO PRN (21:11)
[2018-02-19] MEDS ORDERED: guaiFENesin/D-METHORPHAN HB 10 ML UNIT-DOSE CUPS PO PRN (21:11)
[2018-02-19] MEDS ORDERED: IBUPROFEN 400 MG TABLET (FP) PO PRN (21:11)
[2018-02-19] MEDS ORDERED: chlordiazePOXIDE HCL 25 MG CAPSULE PO PRN (21:11)
[2018-02-19] MEDS ORDERED: MAG HYDROX/AL HYDROX/SIMETH 30 ML UNIT-DOSE CUP PO PRN (21:11)
[2018-02-19] MEDS ORDERED: MAGNESIUM HYDROX 2400MG/30ML ORAL SUSPENSION 30 ML CUP PO PRN (21:11)
[2018-02-19] MEDS ORDERED: MENTHOL/PHENOL 1 EACH UD MM PRN (21:11)
[2018-02-19] MEDS ORDERED: MAGNESIUM CITRATE 300 ML BOTTLE PO PRN (21:11)
[2018-02-19] MEDS ORDERED: LOPERAMIDE HCL 2 MG CAPSULE PO PRN (21:11)
[2018-02-19] MEDS: THIAMINE HCL 100 MG TABLET (FP) PO SCH (21:51)
[2018-02-19] MEDS ORDERED: cloNIDine HCL 0.1 MG TABLET PO ONE (22:00)
[2018-02-19] MEDS ORDERED: MELATONIN 5 MG TABLETS PO PRN (22:00)
--- NOTE | 2018-02-19 22:01 | PN ---
[facility] Progress Note Note: Vital Signs Temperature 99 F 02/19/18 21:56 Pulse Rate 94 H 02/19/18 21:56 Respiratory Rate 19 02/19/18 21:56 Blood Pressure 183/97 02/19/18 21:56 O2 Sat by Pulse Oximetry (%) asymptomatic elevated bp one time dose clonidine 0.1 mg increase fluids repeat vitals in 30 min continue to monitor
[2018-02-19] MEDS: chlordiazePOXIDE HCL 25 MG CAPSULE PO SCH (22:07)
[2018-02-20 02:15] LABS: URINE APPEARANCE CLEAR; URINE BILIRUBIN NEGATIVE (<2.0 mg/dL); URINE COLOR YELLOW; URINE GLUCOSE (UA) NEGATIVE (NEGATIVE); URINE KETONE NEGATIVE (NEGATIVE); URINE LEUK ESTERASE NEGATIVE (NEGATIVE); URINE NITRITE NEGATIVE (NEGATIVE); URINE PROTEIN NEGATIVE (NEGATIVE); URINE UROBILINOGEN NEGATIVE mg/dL (0.2-1.0)
[2018-02-20 02:35] LABS: EPI CELLS RARE /HPF (FEW); URINE MUCUS RARE
[2018-02-20] MEDS: chlordiazePOXIDE HCL 25 MG CAPSULE PO SCH ×4 (05:42→22:17)
[2018-02-20 10:34] LABS: HEMATOCRIT 38.7 % (35.4-49); HEMOGLOBIN 13.1 GM/dL (11.7-16.9); MCH 32.9 pg (25.7-33.7); MCHC 33.8 g/dl (32.0-35.9); MEAN CELL VOLUME 97.1 fl (80-96); MEAN PLT VOLUME 8.3 fl (7.5-11.1); PLATELET COUNT 181 K/MM3 (134-434); RBC 3.98 M/mm3 (4.00-5.60); RDW 14.5 % (11.9-15.9); WHITE BLOOD COUNT 4.4 K/mm3 (4.0-10.0)
[2018-02-20] MEDS: amLODIPine BESYLATE 10 MG TABLET (FP) PO SCH (10:51)
[2018-02-20] MEDS: PRENATAL VITAMINS W/ FOLIC ACID TABLET (FP) PO SCH (10:51)
[2018-02-20] MEDS: ATENOLOL 25 MG TABLET (FP) PO SCH (10:51)
[2018-02-20 11:06] LABS: CHLORIDE 106 mmol/L (98-107); POTASSIUM 3.9 mmol/L (3.5-5.1); SGOT/AST 27 U/L (15-37); SODIUM 142 mmol/L (136-145)
[2018-02-20 11:34] LABS: ALBUMIN 3.4 g/dl (3.4-5.0); ALK PHOS 45 U/L (45-117); ANION GAP 8 (8-16); BILIRUBIN,TOTAL 0.5 mg/dL (0.2-1.0); BLOOD UREA NITROGEN 15 mg/dL (7-18); CO2 28 mmol/L (21-32); CREATININE 0.8 mg/dL (0.7-1.3); GLUCOSE,RANDOM 140 mg/dL (74-106); SGPT/ALT 27 U/L (12-78); TOT PROT 6.5 g/dl (6.4-8.2)
[2018-02-20] MEDS: ALLOPURINOL 100 MG TABLET (FP) PO SCH (11:42)
--- NOTE | 2018-02-20 12:15 | PN ---
[facility] CIWA - CIWA Score Nausea/Vomitin-No Nausea/No Vomiting Muscle Tremors: 2 Anxiety: 4-Mod. Anxious/Guarded Agitation: 0-Normal Activity Paroxysmal Sweats: 2 Orientation: 0-Oriented Tacttile Disturbances: 2-Mild Itch/Numbness/Burn Auditory Disturbances: 1-Very Mild Visual Disturbances: 3-Moderate Sensitivity Headache: 0-None Present CIWA-Ar Total Score: 14 S Progress Note (SOAP) Subjective: Body Aches, Diarrhea, Fatigue. Objective: PATIENT A & O X 3, OBSERVED AMBULATING ON UNIT. NO ACUTE DISTRESS. PATIENT DENIES CHEST PAIN. 02/20/18 12:13 Vital Signs Temperature 98.1 F 02/20/18 09:37 Pulse Rate 112 H 02/20/18 09:37 Respiratory Rate 20 02/20/18 09:37 Blood Pressure 157/93 02/20/18 09:37 O2 Sat by Pulse Oximetry (%) Laboratory Tests 02/20/18 02/20/18 02/20/18 00:01 07:00 07:00 WBC 4.4 RBC 3.98 L Hgb 13.1 Hct 38.7 MCV 97.1 H MCH 32.9 MCHC 33.8 RDW 14.5 Plt Count 181 D MPV 8.3 Sodium 142 Potassium 3.9 Chloride 106 Carbon Dioxide 28 Anion Gap 8 BUN 15 Creatinine 0.8 Creat Clearance w eGFR > 60 Random Glucose 140 H D Calcium 9.0 Total Bilirubin 0.5 AST 27 ALT 27 D Alkaline Phosphatase 45 Total Protein 6.5 Albumin 3.4 Urine Color Yellow Urine Appearance Clear Urine pH 5.0 D Ur Specific [place] 1.015 Urine Protein Negative Urine Glucose (UA) Negative Urine Ketones Negative Urine Blood 1+ H Urine Nitrite Negative Urine Bilirubin Negative Urine Urobilinogen Negative Ur Leukocyte Esterase Negative Urine WBC (Auto) 1 Urine RBC (Auto) 1 Ur Epithelial Cells Rare Urine Mucus Rare LABS NOTED. Assessment: 02/20/18 12:13 WITHDRAWAL SYMPTOMS. HYPERGLYCEMIA (ADMISSION). 02/20/18 12:14 Plan: CONTINUE DETOX. INCREASE DAILY PO FLUID INTAKE. IBUPROFEN FOR BODY ACHES. BGM ACBK FOR ELEVATED ADMISSION RANDOM GLUCOSE LEVEL.
--- NOTE | 2018-02-20 16:50 | EKG ---
Test Reason : Blood Pressure : / mmHG Vent. Rate : 091 BPM Atrial Rate : 091 BPM P-R Int : 174 ms QRS Dur : 096 ms QT Int : 376 ms P-R-T Axes : 061 032 043 degrees QTc Int : 462 ms NORMAL SINUS RHYTHM NORMAL ECG WHEN COMPARED WITH ECG OF 18-JUL-2016 21:36, NO SIGNIFICANT CHANGE WAS FOUND Confirmed by SHERMAN WALSH MD ([id number]) on 02/20/2018 3:52:10 PM Referred By: Confirmed By:SHERMAN WALSH MD
[2018-02-20] MEDS: IBUPROFEN 200 MG TABLET PO SCH (19:36)
[2018-02-20] MEDS: THIAMINE HCL 100 MG TABLET (FP) PO SCH (22:17)
[2018-02-21] MEDS: chlordiazePOXIDE HCL 25 MG CAPSULE PO SCH ×3 (05:51→17:50)
[2018-02-21] MEDS ORDERED: cloNIDine HCL 0.1 MG TABLET PO ONE (05:56)
--- NOTE | 2018-02-21 05:58 | PN ---
[facility] Progress Note Note: Patent's blood pressure is B/P 177/103. Patient is asymptomatic Vital Signs Temperature 97 F L 02/21/18 06:22 Pulse Rate 75 02/21/18 06:22 Respiratory Rate 18 02/21/18 06:22 Blood Pressure 177/103 02/21/18 06:22 O2 Sat by Pulse Oximetry (%) Action: Clonidine 0.1mg tablet oral ordered
[2018-02-21] MEDS: ATENOLOL 25 MG TABLET (FP) PO SCH (10:26)
[2018-02-21] MEDS: IBUPROFEN 200 MG TABLET PO SCH (10:26)
[2018-02-21] MEDS: ALLOPURINOL 100 MG TABLET (FP) PO SCH (10:26)
[2018-02-21] MEDS: amLODIPine BESYLATE 10 MG TABLET (FP) PO SCH (10:26)
[2018-02-21] MEDS: PRENATAL VITAMINS W/ FOLIC ACID TABLET (FP) PO SCH (10:26)
[2018-02-21] MEDS ORDERED: ALLOPURINOL 100 MG TABLET (FP) PO ONE (11:47)
[2018-02-21] MEDS ORDERED: IBUPROFEN 400 MG TABLET (FP) PO PRN (11:49)
--- NOTE | 2018-02-21 11:50 | PN ---
[facility] CIWA - CIWA Score Nausea/Vomitin-No Nausea/No Vomiting Muscle Tremors: 2 Anxiety: 4-Mod. Anxious/Guarded Agitation: 3 Paroxysmal Sweats: 3 Orientation: 0-Oriented Tacttile Disturbances: 1-Very Mild Itch/Numbness Auditory Disturbances: 0-None Visual Disturbances: 1-Very Mild Sensitivity Headache: 0-None Present CIWA-Ar Total Score: 14 [facility] Progress Note (SOAP) Subjective: Sweating, Anxious, Tremors. Patient reports that symptoms in general are subsiding. Objective: PATIENT A & O X 3, OBSERVED AMBULATING ON UNIT. NO ACUTE DISTRESS. PATIENT DENIES CHEST PAIN. 02/21/18 11:51 Vital Signs Temperature 97.7 F 02/21/18 09:42 Pulse Rate 83 02/21/18 09:42 Respiratory Rate 18 02/21/18 09:42 Blood Pressure 135/82 02/21/18 09:42 O2 Sat by Pulse Oximetry (%) Laboratory Tests 02/20/18 02/20/18 02/20/18 00:01 07:00 07:00 WBC 4.4 RBC 3.98 L Hgb 13.1 Hct 38.7 MCV 97.1 H MCH 32.9 MCHC 33.8 RDW 14.5 Plt Count 181 D MPV 8.3 Sodium 142 Potassium 3.9 Chloride 106 Carbon Dioxide 28 Anion Gap 8 BUN 15 Creatinine 0.8 Creat Clearance w eGFR > 60 POC Glucometer Random Glucose 140 H D Calcium 9.0 Total Bilirubin 0.5 AST 27 ALT 27 D Alkaline Phosphatase 45 Total Protein 6.5 Albumin 3.4 Urine Color Yellow Urine Appearance Clear Urine pH 5.0 D Ur Specific [place] 1.015 Urine Protein Negative Urine Glucose (UA) Negative Urine Ketones Negative Urine Blood 1+ H Urine Nitrite Negative Urine Bilirubin Negative Urine Urobilinogen Negative Ur Leukocyte Esterase Negative Urine WBC (Auto) 1 Urine RBC (Auto) 1 Ur Epithelial Cells Rare Urine Mucus Rare 02/21/18 05:50 WBC RBC Hgb Hct MCV MCH MCHC RDW Plt Count MPV Sodium Potassium Chloride Carbon Dioxide Anion Gap BUN Creatinine Creat Clearance w eGFR POC Glucometer 124 Random Glucose Calcium Total Bilirubin AST ALT Alkaline Phosphatase Total Protein Albumin Urine Color Urine Appearance Urine pH Ur Specific [place] Urine Protein Urine Glucose (UA) Urine Ketones Urine Blood Urine Nitrite Urine Bilirubin Urine Urobilinogen Ur Leukocyte Esterase Urine WBC (Auto) Urine RBC (Auto) Ur Epithelial Cells Urine Mucus LABS NOTED. RPR RESULT PENDING. 02/21/18 11:53 Assessment: 02/21/18 11:52 WITHDRAWAL SYMPTOMS. Plan: CONTINUE DETOX.
--- NOTE | 2018-02-21 16:59 | PN ---
[facility] Progress Note Note: ATENOLOL DOSE INCREASED TO 50 MG PO DAILY FOR PERSISTENTLY ELEVATED BP. Derek MCLEAN, HIGHWALL DRILL OPERATOR
[2018-02-21] MEDS ORDERED: ATENOLOL 25 MG TABLET (FP) PO ONE (17:15)
[2018-02-21] MEDS: THIAMINE HCL 100 MG TABLET (FP) PO SCH (22:19)
[2018-02-21] MEDS: chlordiazePOXIDE 5 MG CAPSULE PO SCH (22:19)
[2018-02-22] MEDS: chlordiazePOXIDE 5 MG CAPSULE PO SCH ×3 (05:26→17:47)
[2018-02-22] MEDS: ATENOLOL 50 MG TABLET (FP) PO SCH (10:33)
[2018-02-22] MEDS: amLODIPine BESYLATE 10 MG TABLET (FP) PO SCH (10:33)
[2018-02-22] MEDS: PRENATAL VITAMINS W/ FOLIC ACID TABLET (FP) PO SCH (10:33)
[2018-02-22] MEDS: ALLOPURINOL 100 MG TABLET (FP) PO SCH (10:34)
--- NOTE | 2018-02-22 15:15 | PN ---
[facility] Progress Note (SOAP) Subjective: C/O ANXIETY,CHILLS. REPORTS DETOX PROCEEDING WELL. Objective: 02/22/18 15:14 Vital Signs 02/22/18 02/22/18 09:28 13:39 Temperature 97.4 F L 96.7 F L Pulse Rate 79 66 Respiratory 18 18 Rate Blood Pressure 139/97 111/61 Laboratory Tests 02/20/18 02/20/18 02/20/18 00:01 07:00 07:00 WBC 4.4 RBC 3.98 L Hgb 13.1 Hct 38.7 MCV 97.1 H MCH 32.9 MCHC 33.8 RDW 14.5 Plt Count 181 D MPV 8.3 Sodium 142 Potassium 3.9 Chloride 106 Carbon Dioxide 28 Anion Gap 8 BUN 15 Creatinine 0.8 Creat Clearance w eGFR > 60 POC Glucometer Random Glucose 140 H D Calcium 9.0 Total Bilirubin 0.5 AST 27 ALT 27 D Alkaline Phosphatase 45 Total Protein 6.5 Albumin 3.4 Urine Color Yellow Urine Appearance Clear Urine pH 5.0 D Ur Specific [place] 1.015 Urine Protein Negative Urine Glucose (UA) Negative Urine Ketones Negative Urine Blood 1+ H Urine Nitrite Negative Urine Bilirubin Negative Urine Urobilinogen Negative Ur Leukocyte Esterase Negative Urine WBC (Auto) 1 Urine RBC (Auto) 1 Ur Epithelial Cells Rare Urine Mucus Rare RPR Titer 02/20/18 02/21/18 02/22/18 07:00 05:50 05:26 WBC RBC Hgb Hct MCV MCH MCHC RDW Plt Count MPV Sodium Potassium Chloride Carbon Dioxide Anion Gap BUN Creatinine Creat Clearance w eGFR POC Glucometer 124 119 Random Glucose Calcium Total Bilirubin AST ALT Alkaline Phosphatase Total Protein Albumin Urine Color Urine Appearance Urine pH Ur Specific [place] Urine Protein Urine Glucose (UA) Urine Ketones Urine Blood Urine Nitrite Urine Bilirubin Urine Urobilinogen Ur Leukocyte Esterase Urine WBC (Auto) Urine RBC (Auto) Ur Epithelial Cells Urine Mucus RPR Titer Nonreactive Assessment: 02/22/18 15:14 WITHDRAWAL SX Plan: CONTINUE DETOX
[2018-02-22] MEDS: chlordiazePOXIDE HCL 10 MG CAPSULE PO SCH (22:41)
[2018-02-22] MEDS: THIAMINE HCL 100 MG TABLET (FP) PO SCH (22:41)
[2018-02-23] MEDS: chlordiazePOXIDE HCL 10 MG CAPSULE PO SCH (05:57)
[2018-02-23 09:21] VITALS: BP 145/85; PULSE 88; TEMP 98.1
[2018-02-23] MEDS: PRENATAL VITAMINS W/ FOLIC ACID TABLET (FP) PO SCH (10:27)
[2018-02-23] MEDS: amLODIPine BESYLATE 10 MG TABLET (FP) PO SCH (10:27)
[2018-02-23] MEDS: ATENOLOL 50 MG TABLET (FP) PO SCH (10:28)
[2018-02-23] MEDS: ALLOPURINOL 100 MG TABLET (FP) PO SCH (10:28)
--- NOTE | 2018-02-23 16:58 | DS ---
[facility] Detox Discharge Summary Admission Date: 02/19/18 Discharge Date: 02/23/18 - History Present History: Alcohol Dependence Pertinent Past History: HLD HTN GOUT - Physical Exam Results Vital Signs: Vital Signs Temperature 98.1 F 02/23/18 09:20 Pulse Rate 88 02/23/18 09:20 Respiratory Rate 18 02/23/18 09:20 Blood Pressure 145/85 02/23/18 09:20 O2 Sat by Pulse Oximetry (%) Pertinent Admission Physical Exam Findings: Withdrawal symptoms Laboratory Tests 02/20/18 02/20/18 02/20/18 00:01 07:00 07:00 WBC 4.4 RBC 3.98 L Hgb 13.1 Hct 38.7 MCV 97.1 H MCH 32.9 MCHC 33.8 RDW 14.5 Plt Count 181 D MPV 8.3 Sodium 142 Potassium 3.9 Chloride 106 Carbon Dioxide 28 Anion Gap 8 BUN 15 Creatinine 0.8 Creat Clearance w eGFR > 60 POC Glucometer Random Glucose 140 H D Calcium 9.0 Total Bilirubin 0.5 AST 27 ALT 27 D Alkaline Phosphatase 45 Total Protein 6.5 Albumin 3.4 Urine Color Yellow Urine Appearance Clear Urine pH 5.0 D Ur Specific [place] 1.015 Urine Protein Negative Urine Glucose (UA) Negative Urine Ketones Negative Urine Blood 1+ H Urine Nitrite Negative Urine Bilirubin Negative Urine Urobilinogen Negative Ur Leukocyte Esterase Negative Urine WBC (Auto) 1 Urine RBC (Auto) 1 Ur Epithelial Cells Rare Urine Mucus Rare RPR Titer 02/20/18 02/21/18 02/22/18 07:00 05:50 05:26 WBC RBC Hgb Hct MCV MCH MCHC RDW Plt Count MPV Sodium Potassium Chloride Carbon Dioxide Anion Gap BUN Creatinine Creat Clearance w eGFR POC Glucometer 124 119 Random Glucose Calcium Total Bilirubin AST ALT Alkaline Phosphatase Total Protein Albumin Urine Color Urine Appearance Urine pH Ur Specific [place] Urine Protein Urine Glucose (UA) Urine Ketones Urine Blood Urine Nitrite Urine Bilirubin Urine Urobilinogen Ur Leukocyte Esterase Urine WBC (Auto) Urine RBC (Auto) Ur Epithelial Cells Urine Mucus RPR Titer Nonreactive 02/23/18 05:58 WBC RBC Hgb Hct MCV MCH MCHC RDW Plt Count MPV Sodium Potassium Chloride Carbon Dioxide Anion Gap BUN Creatinine Creat Clearance w eGFR POC Glucometer 97 Random Glucose Calcium Total Bilirubin AST ALT Alkaline Phosphatase Total Protein Albumin Urine Color Urine Appearance Urine pH Ur Specific [place] Urine Protein Urine Glucose (UA) Urine Ketones Urine Blood Urine Nitrite Urine Bilirubin Urine Urobilinogen Ur Leukocyte Esterase Urine WBC (Auto) Urine RBC (Auto) Ur Epithelial Cells Urine Mucus RPR Titer Labs reviewed: UA shows microscopic hematuria (encouraged to drink lots of water , f/u with PCP within 1 week) - Treatment Hospital Course: Detox Protocol Followed, Detoxed Safely, Responded well, Discharged Condition Good - Medication Discharge Medications: Ambulatory Orders Atenolol [Tenormin -] 25 mg PO DAILY #30 tablet 08/14/16 Allopurinol [Zyloprim -] 100 mg PO DAILY 02/19/18 Amlodipine Besylate 10 mg PO DAILY 02/19/18 - Diagnosis (1) Alcohol dependence with uncomplicated withdrawal Status: Acute (2) Gout Status: Chronic Qualifiers: Gout site: unspecified site Gout etiology: unspecified cause Chronicity: chronic Presence of tophus: without tophus Qualified Code(s): [id number] - Chronic gout, unspecified, without tophus (tophi) (3) Hyperlipidemia Status: Chronic Qualifiers: Hyperlipidemia type: unspecified Qualified Code(s): E78.5 - Hyperlipidemia , unspecified (4) Hypertension Status: Chronic Qualifiers: Hypertension type: unspecified Qualified Code(s): I10 - Essential (primary ) hypertension (5) Microscopic hematuria Status: Acute - AMA Did Patient Leave Against Medical Advice: No (F/U with your PCP within 1 week)
== END 2018-02-23 11:30 | disposition home or self-care (01) | DRG 775 ==
LOC: YASAS 12:06 → Y3N 19:14
PROVIDERS: ADMIT Surgery; ATTEND Surgery
PROC: HZ2ZZZZ Detoxification Services for Substance Abuse Treatment (ICD-10-PCS; principal; 2018-02-19)
DX: F10.230 Alcohol dependence with withdrawal, uncomplicated (principal); I10 Essential (primary) hypertension; E78.5 Hyperlipidemia, unspecified; M1A.9XX0 Chronic gout, unspecified, without tophus (tophi); D50.9 Iron deficiency anemia, unspecified; C91.41 Hairy cell leukemia, in remission; B02.9 Zoster without complications; E73.9 Lactose intolerance, unspecified; R00.0 Tachycardia, unspecified; Z88.0 Allergy status to penicillin; Z88.1 Allergy status to other antibiotic agents
CPT/HCPCS: 36415; 80053; 81003; 81015; 82962; 85027; 86593; 93005; 93010; J0735